=== PATIENT | female | born 1950 | race Caucasian/White ===

== ENCOUNTER 2017-03-14 15:05 | Emergency (ER) | payer OTHER ==
[2017-03-14 15:13] VITALS: RESP 16; TEMP 97.5
--- NOTE | 2017-03-14 15:53 | EDPHY ---
H & P Stated Complaint: L ankle injury monday twisted-- missed step Time Seen by Provider: 03/14/17 15:44 HPI/ROS: CHIEF COMPLAINT: Left ankle pain HISTORY OF PRESENT ILLNESS: The patient is a 66-year-old female who missed the last step coming down the stairs on Monday. She twisted her ankle and complains of pain primarily lateral distal to the lateral malleolus. She has bruising and swelling from there distally. Mild warmth. No erythema. She states she has been working in on her feet since then and not really taken care of it. One of her friends is a physical therapist and was manipulating it. The physical therapist was concerned about possibly a chip of the tibia. REVIEW OF SYSTEMS: Constitutional: denies: chills, fever, recent illness, recent injury EENTM: denies: blurred vision, double vision, nose congestion Respiratory: denies: cough, shortness of breath Cardiac: denies: chest pain, irregular heart rate, lightheadedness, palpitations Gastrointestinal/Abdominal: denies: abdominal pain, diarrhea, nausea, vomiting, blood streaked stools Genitourinary: denies: dysuria, frequency, hematuria, pain Musculoskeletal: See HPI Skin: denies: lesions, rash, jaundice, bruising Neurological: denies: headache, numbness, paresthesia, tingling, dizziness, weakness Hematologic/Lymphatic: denies: blood clots, easy bleeding, easy bruising Immunologic/allergic: denies: HIV/AIDS, transplant EXAM: GENERAL: Well-appearing, well-nourished and in no acute distress. HEAD: Atraumatic, normocephalic. EYES: Pupils equal round and reactive to light, extraocular movements intact, sclera anicteric, conjunctiva are normal. ENT: TMs normal, nares patent, oropharynx clear without exudates. Moist mucous membranes. NECK: Normal range of motion, supple without lymphadenopathy or JVD. LUNGS: Breath sounds clear to auscultation bilaterally and equal. No wheezes rales or rhonchi. HEART: Regular rate and rhythm without murmurs, rubs or gallops. ABDOMEN: Soft, nontender, normoactive bowel sounds. No guarding, no rebound. No masses appreciated. BACK: No CVA tenderness, no spinal tenderness, step-offs or deformities EXTREMITIES: Swelling and bruising to left foot from the ankle down. No bony tenderness of the malleoli or metatarsal bones. No calf pain, no knee pain. She is ambulatory. NEUROLOGICAL: Cranial nerves II through XII grossly intact. Normal speech, normal gait. 5/5 strength, normal movement in all extremities, normal sensation PSYCH: Normal mood, normal affect. SKIN: Warm, dry, normal turgor, no visible rashes or lesions. Source: Patient Exam Limitations: No limitations - Personal History Current Tetanus/Diphtheria Vaccine: Unsure Current Tetanus Diphtheria and Acellular Pertussis (TDAP): Unsure - Medical/Surgical History Hx Asthma: No Hx Chronic Respiratory Disease: No Hx Diabetes: No Hx Cardiac Disease: No Hx Renal Disease: No Hx Cirrhosis: No Hx Alcoholism: No Hx HIV/AIDS: No Hx Splenectomy or Spleen Trauma: No Other PMH: healthy per pt - Family History Significant Family History: No pertinent family hx - Social History Smoking Status: Never smoked Alcohol Use: Sober Drug Use: None Constitutional: Initial Vital Signs Temperature (C) 36.4 C 03/14/17 15:11 Heart Rate 81 03/14/17 15:11 Respiratory Rate 16 03/14/17 15:11 O2 Sat (%) 97 03/14/17 15:11 O2 Delivery Mode Room Air Allergies/Adverse Reactions: codeine Allergy (Unknown, Verified 06/24/13 07:53) Home Medications: Medication Instructions Recorded NK [No Known Home Meds] 03/14/17 Medical Decision Making - Diagnostics Imaging Results: Imaging Impressions Ankle X-Ray 03/14/17 15:13 Impression: Lateral ankle sprain. 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 There is a small enthesophyte along the base of the fifth metatarsal. The tarsometatarsal alignment is anatomic. There is some soft tissue swelling about the hindfoot. There is no periostitis. Impression: There is no acute osseous abnormality identified. Foot X-Ray 03/14/17 15:51 Impression: Lateral ankle sprain. 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 There is a small enthesophyte along the base of the fifth metatarsal. The tarsometatarsal alignment is anatomic. There is some soft tissue swelling about the hindfoot. There is no periostitis. Impression: There is no acute osseous abnormality identified. Imaging: Discussed imaging studies w/ scallop binder Radiologist Procedures: Procedure: Splint placement. A stirrup splint was applied. After application of the splint I returned and re -examined the patient. The splint was adequately immobilizing the joint and distal to the splint the patient's circulation and sensation was intact. ED Course/Re-evaluation: The patient the is relieved with the x-ray results. We have placed it in a stirrup splint for comfort and encouraged weight-bearing as tolerated. Encouraged elevation rest and ice. Patient is happy with this and declines further workup or testing. Differential Diagnosis: Partial list of the Differential diagnosis considered include but were not limited to; fracture, contusion, sprain and although unlikely based on the history and physical exam, I also considered infection, DVT. I discussed these differential diagnoses and the plan with the patient as well as the usual and expected course. The patient understands that the diagnosis is provisional and that in medicine we are not always correct and that further workup is often warranted. Usual and customary warnings were given. All of the patient's questions were answered. The patient was instructed to return to the emergency department should the symptoms at all worsen or return, otherwise to followup with the physician as we discussed. Departure - Departure Disposition: Home, Routine, Self-Care Clinical Impression: Left ankle sprain Qualifiers: Encounter type: initial encounter Involved ligament of ankle: anterior talofibular ligament Qualified Code(s): S93.492A - Sprain of other ligament of left ankle, initial encounter Condition: Fair Instructions: Ankle Sprain (ED) Referrals: NONE *PRIMARY CARE P,. [Primary Care Provider] - As per Instructions Isidro Ambriz MD [Medical Doctor] - 5-7 days, if not improved
[2017-03-14 17:24] VITALS: BP 117/58; PULSE 67; O2SAT 95
== END 2017-03-14 17:23 | disposition home or self-care (01) ==
DX: S93.492A Sprain of other ligament of left ankle, initial encounter (principal); X50.9XXA Other and unspecified overexertion or strenuous movements or postures, initial encounter